=== PATIENT | female | born 2000 | race Two or more races ===

== ENCOUNTER 2024-06-22 10:41 | Emergency (ER) | payer SELFPAY ==
[~2024-06-22] VITALS: Ht 157.5 cm; Wt 53.5 kg
[2024-06-22] MEDS ORDERED: ONDANSETRON 4 MG/2 ML VIAL ONE (11:05)
[2024-06-22] MEDS ORDERED: HYDROMORPHONE 1 MG/1 ML DISP.SYRIN ONE (11:05)
[2024-06-22] MEDS: ONDANSETRON 4 MG/2 ML VIAL IV ONE (11:12)
[2024-06-22] MEDS: HYDROMORPHONE 1 MG/1 ML DISP.SYRIN IV ONE (11:15)
[2024-06-22] MEDS ORDERED: HYDR-3973 PO (13:14)
[2024-06-22 13:27] VITALS: BP 106/70; O2SAT 100
== END 2024-06-22 13:07 | disposition home or self-care (01) ==
LOC: ER 10:46
DX: S62.101A Fracture of unspecified carpal bone, right wrist, initial encounter for closed fracture (principal); W01.0XXA Fall on same level from slipping, tripping and stumbling without subsequent striking against object, initial encounter; Y93.89 Activity, other specified; Y92.89 Other specified places as the place of occurrence of the external cause; Y99.8 Other external cause status
CPT/HCPCS: 73110; A4606; A4663; J1171; J2405